=== PATIENT | female | born 1985 | race Caucasian/White ===

== ENCOUNTER 2017-12-03 16:10 | Emergency (ER) | payer SELFPAY ==
[~2017-12-03] VITALS: Ht 165.1 cm; Wt 65.0 kg
[2017-12-03] MEDS ORDERED: TETRACAINE 0.5% OPHTH DROPS 4ML BOTHEYE ONE (16:30)
[2017-12-03 17:58] VITALS: BP 122/86
== END 2017-12-03 18:03 | disposition home or self-care (01) ==
LOC: ER 16:43
DX: H57.13 Ocular pain, bilateral (principal)
CPT/HCPCS: 99283; J7030

== ENCOUNTER 2019-03-12 20:24 | Emergency (ER) | payer SELFPAY ==
[~2019-03-12] VITALS: Ht 167.6 cm; Wt 64.0 kg
[2019-03-12 20:25] VITALS: BP 121/74
== END 2019-03-13 | disposition left against medical advice (07) ==
LOC: ER 20:24
DX: Z53.21 Procedure and treatment not carried out due to patient leaving prior to being seen by health care provider (principal)

== ENCOUNTER 2022-03-20 11:59 | Emergency (ER) | payer MEDICAID ==
[~2022-03-20] VITALS: Ht 160 cm; Wt 59.0 kg
[2022-03-20 14:45] VITALS: BP 128/70
[2022-03-20] MEDS ORDERED: HYDROCODONE/ACETAMINOPHEN 5/325MG TABLET PO ONE (14:45)
[2022-03-20] MEDS ORDERED: AMOX1TAB16 MT (14:45)
[2022-03-20] MEDS ORDERED: GUAI600T26 MT (14:45)
[2022-03-20] MEDS ORDERED: IBUP-2029 MT (14:45)
[2022-03-20] MEDS ORDERED: GUAIFENESIN 600MG ER TABLET PO ONE (14:45)
[2022-03-20] MEDS ORDERED: AMOXICILLIN/POTASSIUM CLAVULANATE 875/125MG TAB PO ONE (14:45)
== END 2022-03-20 15:05 | disposition home or self-care (01) ==
LOC: ER 11:59
DX: H66.92 Otitis media, unspecified, left ear (principal)
CPT/HCPCS: 81025; 99284

== ENCOUNTER 2022-06-21 19:43 | Emergency (ER) | payer MEDICAID, OTHER ==
[~2022-06-21] VITALS: Ht 160 cm; Wt 59.0 kg
[~2022-06-21 19:43] MED LIST: AMOX1TAB16 MT; GUAI600T26 MT; IBUP-2029 MT
[2022-06-21 20:45] LABS: BASOPHILS % 0.7 % (0.0-2.0); EOSINOPHILS % 0.8 % (0.0-5.0); HEMATOCRIT. 34.8 % (36.0-48.0); HEMOGLOBIN. 12.4 g/dL (12.0-16.0); LYMPHOCYTES % 40.9 % (20.0-50.0); MEAN CORPUSCULAR VOLUME 87.3 fL (81.0-99.0); MEAN PLATELET VOLUME 8.3 fl (7.4-10.4); MONOCYTES % 8.2 % (2.0-8.0); NEUTROPHILS % 49.4 % (40.0-76.0); PLATELET 236 x1000/uL (130-400); RED BLOOD CELL COUNT 3.98 mill/uL (4.2-5.4)
[2022-06-21 20:53] LABS: CHLORIDE 109 mEq/L (98-107)
[2022-06-21 20:54] LABS: PROTHROMBIN TIME 10.6 sec (9.6-11.0)
[2022-06-21] MEDS ORDERED: KETOROLAC 30MG/ML VIAL IV STA (20:56)
[2022-06-21] MEDS ORDERED: SODIUM CHLORIDE 0.9% 1,000 ML IV ONE (21:00)
[2022-06-21 21:12] LABS: HCG SCREEN NEGATIVE
[2022-06-22] MEDS ORDERED: CIPR-263 MT (01:02)
[2022-06-22 01:24] VITALS: BP 123/71
== END 2022-06-22 01:50 | disposition home or self-care (01) ==
LOC: ER 19:43
DX: R07.2 Precordial pain (principal); R19.7 Diarrhea, unspecified; R10.32 Left lower quadrant pain
CPT/HCPCS: 36415; 71045; 74176; 80053; 83880; 84484; 84703; 85025; 85610; 93005; 96374; 99285; J1885; J7030; Z7610

== ENCOUNTER 2024-09-11 07:54 | Emergency (ER) | payer OTHER ==
[~2024-09-11] VITALS: Ht 165.1 cm; Wt 66.0 kg
[~2024-09-11 07:54] MED LIST changes: +CIPR-263 MT
[2024-09-11 07:58] VITALS: O2SAT 100
[2024-09-11] MEDS ORDERED: IBUP-2029 MT (09:33)
[2024-09-11 10:06] VITALS: BP 118/65; PULSE 75; RESP 14; TEMP 37.1; O2SAT 100
== END 2024-09-11 10:08 | disposition home or self-care (01) ==
LOC: ER 08:22
DX: M25.561 Pain in right knee (principal); Z79.899 Other long term (current) drug therapy
CPT/HCPCS: 99282